=== PATIENT | male | born 1965 | race Caucasian/White ===

== ENCOUNTER 2018-05-08 16:46 | Observation (INO) | payer OTHER ==
[~2018-05-08] VITALS: Ht 170.2 cm; Wt 95.2 kg
[~2018-05-08 16:46] MED LIST: HYDACE5 PO
[2018-05-08] MEDS ORDERED: LOSA25 PO (17:20)
[2018-05-08] MEDS ORDERED: NIAC500 PO (17:21)
[2018-05-08] MEDS ORDERED: GEMF600 PO (17:21)
[2018-05-08 17:35] LABS: BASOPHILS ABSOLUTE AUTO 0.08 K/mm3 (0.00-0.23); BASOPHILS PERCENT AUTO 1 % (0-2); EOSINOPHILS ABSOLUTE AUTO 0.17 K/mm3 (0.00-0.68); EOSINOPHILS PERCENT AUTO 2 % (0-6); Hematocrit 44.4 % (37.0-53.0); IMMATURE GRAN ABSOLUTE AUTO 0.03 K/mm3 (0.00-0.10); IMMATURE GRAN PERCENT AUTO 0 % (0-1); LYMPHOCYTES ABSOLUTE AUTO 3.33 K/mm3 (0.84-5.20); LYMPHOCYTES PERCENT AUTO 32 % (21-46); MONOCYTES ABSOLUTE AUTO 1.09 K/mm3 (0.16-1.47); MONOCYTES PERCENT AUTO 11 % (4-13); Mean Corpuscular HGB 33.1 pg (26.0-34.0); Mean Corpuscular Volume 92 fL (80-100); Mean Platelet Volume 8.9 fL (9.1-12.4); NEUTROPHILS ABSOLUTE AUTO 5.65 K/mm3 (1.96-9.15); NEUTROPHILS PERCENT AUTO 55 % (41-73); Platelet Count 297 K/mm3 (150-400); RDW Coefficient Variation 11.9 % (11.7-14.2); RDW Standard Deviation 39.7 fL (35.1-46.3); Red Blood Cell Count 4.84 M/mm3 (4.30-5.90); White Blood Cell Count 10.35 K/mm3 (4.00-11.30)
[2018-05-08 18:05] LABS: Alanine Aminotransfer (ALT/SGP 52 U/L (12-78); Albumin, Blood 4.4 g/dL (3.4-5.0); Albumin/Globulin Ratio 1.1 (0.8-1.8); Alk Phos 67 U/L (50-136); Anion Gap 10 mmol/L (6-16); Aspartate Aminotrans (AST/SGOT 69 U/L (12-37); Bilirubin, Total 1.1 mg/dL (0.1-1.0); Blood Urea Nitrogen 22 mg/dL (8-24); Bun/Creatinine Ratio 23.1 (12.0-20.0); CO2, Blood 26 mmol/L (21-32); Calcium, Blood 8.8 mg/dL (8.5-10.1); Chloride, Blood 96 mmol/L (98-108); Creatinine, Blood 0.95 mg/dL (0.60-1.20); Globulin, Blood 3.9 g/dL (2.2-4.0); Glomerular Filtration Rate >60 (60-); Glucose, Blood 129 mg/dL (70-99); Potassium, Blood 3.6 mmol/L (3.5-5.5); Sodium, Blood 132 mmol/L (136-145); Total Protein, Blood 8.3 g/dL (6.4-8.2)
[2018-05-08 19:01] LABS: Troponin I <0.015 ng/mL (0.000-0.040)
[2018-05-08] MEDS ORDERED: LOSA50 PO (22:05)
[2018-05-08] MEDS ORDERED: ABAT250V (22:05)
[2018-05-08] MEDS ORDERED: Hydrochloroth12.5 MG PO (22:06)
[2018-05-08] MEDS ORDERED: ASPI81CH PO (22:07)
[2018-05-09 01:32] LABS: CHOL/HDL RATIO 4.8; Cholesterol 208 mg/dL (50-200); HDL Cholesterol 43 mg/dL (>39); LDL/HDL RATIO Unable to Calculate; Low Density Lipoprotein Chol Unable to Calculate mg/dL (0-110); Triglycerides 785 mg/dL (30-160); Very Low Density Lipoprot Chol Unable to Calculate mg/dL (6-32)
[2018-05-09] MEDS ORDERED: NITR.4SL SL (09:24)
[2018-05-09] MEDS ORDERED: NIAC500ER PO (09:24)
[2018-05-09] MEDS ORDERED: PANT20 PO (09:25)
== END 2018-05-09 11:04 | disposition home or self-care (01) ==
LOC: ER 16:46 → MEDS 16:47 → ENPENDDIS 05-09 09:59 → MEDS 05-09 11:04
PROVIDERS: Hospitalist; Physician Assistant
DX: R07.89 Other chest pain (principal); I10 Essential (primary) hypertension; E78.5 Hyperlipidemia, unspecified; E78.00 Pure hypercholesterolemia, unspecified; R55 Syncope and collapse; E87.1 Hypo-osmolality and hyponatremia; Z88.8 Allergy status to other drugs, medicaments and biological substances; Z88.0 Allergy status to penicillin; Z82.49 Family history of ischemic heart disease and other diseases of the circulatory system
CPT/HCPCS: 36415; 71046; 80053; 80061; 83880; 84484; 85025; 93005; 93010; 99285-25

== ENCOUNTER → 2022-03-16 | Outpatient (CLI) | payer OTHER ==
[~2022-03-16] MED LIST changes: +ABAT250V; +ASPI81CH PO; +GEMF600 PO; +Hydrochloroth12.5 MG PO; +LOSA25 PO; +LOSA50 PO; +NIAC500 PO; +NIAC500ER PO; +NITR.4SL SL; +PANT20 PO
[2022-03-16 16:32] LABS: Albumin, Blood 4.1 g/dL (3.4-5.0); Bilirubin, Total 0.5 mg/dL (0.1-1.0); Bun/Creatinine Ratio 18.2 (12.0-20.0); Calcium, Blood 9.2 mg/dL (8.5-10.1); Creatinine, Blood 0.88 mg/dL (0.60-1.20); Potassium, Blood 2.8 mmol/L (3.5-5.5); Total Protein, Blood 8.1 g/dL (6.4-8.2)
[2022-03-16 18:30] LABS: BASOPHILS PERCENT AUTO 1 % (0-2); EOSINOPHILS ABSOLUTE AUTO 0.36 K/mm3 (0.00-0.68); EOSINOPHILS PERCENT AUTO 4 % (0-6); IMMATURE GRAN ABSOLUTE AUTO 0.03 K/mm3 (0.00-0.10); IMMATURE GRAN PERCENT AUTO 0 % (0-1); LYMPHOCYTES ABSOLUTE AUTO 3.56 K/mm3 (0.84-5.20); LYMPHOCYTES PERCENT AUTO 42 % (21-46); MONOCYTES PERCENT AUTO 14 % (4-13); NEUTROPHILS ABSOLUTE AUTO 3.19 K/mm3 (1.96-9.15); NEUTROPHILS PERCENT AUTO 38 % (41-73)
[2022-03-16 18:45] LABS: Red Blood Cell Count 4.51 M/mm3 (4.30-5.90)
[2022-03-16 18:46] LABS: Platelet Count 287 K/mm3 (150-400); RDW Coefficient Variation 12.5 % (11.7-14.2); RDW Standard Deviation 40.9 fL (35.1-46.3)
[2022-03-16 18:50] LABS: Hematocrit 40.8 % (37.0-53.0); Mean Corpuscular HGB 33.3 pg (26.0-34.0); Mean Corpuscular Volume 91 fL (80-100)
[2022-03-16 18:51] LABS: Mean Corpuscular HGB Conc 36.8 g/dL (31.5-36.5)
[2022-03-16 18:55] LABS: White Blood Cell Count 7.35 K/mm3 (4.00-11.30)
== END | disposition home or self-care (01) ==
LOC: LAB SHORT 16:17 → LAB 16:17
PROVIDERS: Physician Assistant Surgical
DX: R10.9 Unspecified abdominal pain (principal)
CPT/HCPCS: 80053; 85025